=== PATIENT | male | born 1945 | race Caucasian/White ===

== ENCOUNTER → 2020-01-07 13:47 | Outpatient (BNVA) | payer MEDICARE, SELFPAY | PROVIDERS: PCP Family Medicine; Referring Provider Family Medicine; Visit Provider Internal Medicine | DX: I25.10 Atherosclerotic heart disease of native coronary artery without angina pectoris (principal); I10 Essential (primary) hypertension; E78.5 Hyperlipidemia, unspecified; E11.8 Type 2 diabetes mellitus with unspecified complications; F10.10 Alcohol abuse, uncomplicated; Z79.899 Other long term (current) drug therapy; Z79.84 Long term (current) use of oral hypoglycemic drugs | CPT/HCPCS: 99212 ==

== ENCOUNTER 2021-02-19 12:41 | Outpatient (REF) | payer MEDICARE, SELFPAY ==
--- NOTE | ~2021-02-19 | XR_ITS ---
EXAMINATION: XR ANKLE, RIGHT CLINICAL INFORMATION: Pain right foot and ankle COMPARISON: Report of May 01, 2012. No films available. TECHNIQUE: AP, lateral, and mortise views of the right ankle. FINDINGS: There is a nondisplaced spiral fracture about the distal right fibula. There is a small bony density about the distal aspect of the medial malleolus which may represent acute or chronic avulsion fracture fragment versus secondary ossification center.. There is soft tissue swelling seen about both medial and lateral aspects of the ankle. No medial joint space widening is seen. No talar tilt is appreciated. Prominent vascular calcifications are noted. Prominent calcaneal spurs are seen sites of insertion of Achilles and plantar tendons. XR/XR ankle RT 2V IMPRESSION: Nondisplaced spiral fracture distal fibula. Bony density tip of the medial malleolus which may represent acute or chronic avulsion fracture.
== END 2021-02-19 12:42 | disposition home or self-care (01) ==
LOC: HO.XRAY 12:41
PROVIDERS: PCP Family Medicine; Visit Provider Family Medicine
DX: M25.571 Pain in right ankle and joints of right foot (principal)
CPT/HCPCS: 73600

== ENCOUNTER 2021-02-19 13:44 | Emergency (ER) | payer MEDICARE, SELFPAY ==
[2021-02-19 13:56] VITALS: BP 141/74; PULSE 68; RESP 16; TEMP 36.7; O2SAT 98; BMI 36.0
== END 2021-02-19 17:09 | disposition left against medical advice (07) ==
PROVIDERS: Emergency Provider Emergency Medicine; PCP Family Medicine
DX: M79.661 Pain in right lower leg (principal)
CPT/HCPCS: 99281; 99282

== ENCOUNTER 2021-02-22 11:19 | Emergency (ER) | payer MEDICARE, SELFPAY ==
--- NOTE | 2021-02-22 12:04 | ED.LOWEXIN ---
HPI - Extremity Injury (Lower) General Stated Complaint: ankle pain - recalled Time Seen by Provider: 02/22/21 12:02 Source: patient Mode of arrival: ambulatory Limitations: no limitations History of Present Illness HPI Narrative: Patient fell 8 days ago in his house inverting his ankle. Patient has been walking on it since. 3 days ago on Monday patient hand an xray that was positive for fracture. MD complaint: ankle injury Onset (ago): week(s) Type of Injury: inversion Place: home Severity: moderate Exacerbating factors: weight bearing and movement Context: fall Associated symptoms: swelling Other symptoms: none Related Data Home Medications Medication Instructions Recorded Confirmed atorvastatin 80 mg tablet 80 mg PO DAILY 01/07/20 01/07/20 folic acid 1 mg tablet 1 mg PO DAILY 01/07/20 01/07/20 gabapentin 300 mg capsule 300 mg PO BID 01/07/20 01/07/20 insulin glargine 100 unit/mL (3 10 unit SUBCUT BEDTIME 01/07/20 01/07/20 mL) subcutaneous pen loratadine 10 mg tablet 10 mg PO DAILY 01/07/20 01/07/20 metformin 500 mg tablet,extended 1,000 mg PO BID 01/07/20 01/07/20 release 24 hr mirtazapine 15 mg tablet 15 mg PO BEDTIME 01/07/20 01/07/20 pioglitazone 15 mg tablet 15 mg PO DAILY 01/07/20 01/07/20 risperidone 1 mg tablet 1 mg PO BEDTIME 01/07/20 01/07/20 thiamine HCl (vitamin B1) 100 mg 100 mg PO DAILY 01/07/20 01/07/20 tablet Previous Rx's Medication Instructions Recorded metoprolol succinate 25 mg 25 mg PO DAILY 90 Days #90 tab 01/24/20 tablet,extended release 24 hr naproxen 500 mg tablet (Naprosyn) 500 mg PO BID #20 tab 02/22/21 Allergies Allergy/AdvReac Type Severity Reaction Status Date / Time Penicillins [PENICILLINS] Allergy Severe ANAPHYLAXIS Verified 01/07/20 09:35 Review of Systems Constitutional: Constitutional: Reports no additional constitutional complaints Eyes: Eyes: Reports no additional eye complaints ENT: Denies dizziness Cardiovascular: Cardiovascular: Reports no additional cardiovascular complaints Respiratory: Respiratory: Reports as per HPI Gastrointestinal: Gastrointestinal: Reports no additional gastrointestinal complaints Musculoskeletal: Musculoskeletal: Reports no additional musculoskeletal complaints Integumentary/Breasts: Skin/Breast: Denies rash Neurologic: Reports system reviewed and no additional complaints, except as documented, Denies dizziness and Denies Sensory deficit (Neuro) Psychiatric: Psychiatric: Denies anxiety PMF Past Medical History Medical History Atherosclerotic cardiovascular disease Essential hypertension Excessive drinking alcohol Other and unspecified hyperlipidemia Pulmonary embolism Type 2 diabetes mellitus with unspecified complications Surgical History History of appendectomy (~1973) History of cholecystectomy History of colonoscopy (~10/2012) History of esophagogastroduodenoscopy (EGD) (~04/2016) History of eye surgery History of left hip replacement (~2005) History of left knee replacement (~2010) History of right hip replacement (~2002) Family History Family History Father Stroke Cardiovascular disease Mother No problems noted. Social History Social History Advance Directives: No Advance Directives Information Provided: No Physical Exam Const: General: healthy appearing Nutritional Appearance: obese Orientation/consciousness: oriented to person and patient oriented x3 Limitations: no limitations HENMT: Head: Yes normal to inspection Ears: external ears normal General nose exam: Normal external nose present Mouth: Normal oral and palatal mucosa present and oropharynx normal Throat: Yes posterior oropharynx normal Eyes: General: appearance normal, both eyes and all related structures Neck: Other: supple Neck: Yes normal visual inspection Chest: Chest palpation & inspection: normal inspection of the chest Resp: Auscultation: clear to auscultation bilaterally Cardio: Jugular venous distension: no JVD Rate: regular rate Rhythm: regular rhythm Heart sounds: S1 normal heart sound present and S2 normal heart sound present GI: Inspection: Yes normal to inspection Palpation (GI): Soft to palpation, nontender and No hepatosplenomegaly present Auscultation: normal bowel sounds : General: Yes no CVA tenderness Back/Spine/Pelvis: Back: no CVA tenderness Skin: General skin exam: no rashes or lesions noted Neuro: General: oriented to person and patient oriented x3 Cranial nerves: Yes CN's II-XII intact bilaterally Motor exam (neuro): 5/5 motor strength present throughout Sensory Exam: No Sensory deficit (Neuro) Extrem: Other: right ankle with edema, decreased ROM, tenderness to lateral malleolous, good DP pulses. Psych: Appearance: grossly normal Course Reevaluation(s) Reevaluation #1: Discussed with Dr. Greene will place patient in a walking boot and dc home Time: 12:50 Discharge Plan Discharge Clinical Impression: Fracture of distal end of fibula Qualifiers: Encounter type: initial encounter Fracture type: closed Fracture morphology: other fracture Laterality: right Qualified Code(s): S82.831A - Other fracture of upper and lower end of right fibula, initial encounter for closed fracture Patient Disposition: Home, Self-Care Instructions: Leg Fracture (ED) Prescriptions: New naproxen [Naprosyn] 500 mg tablet 500 mg PO BID Qty: 20 RF: 0 No Action metoprolol succinate 25 mg tablet extended release 24 hr 25 mg PO DAILY 90 Days Qty: 90 RF: 1 folic acid 1 mg tablet 1 mg PO DAILY RF: 0 loratadine 10 mg tablet 10 mg PO DAILY RF: 0 gabapentin 300 mg capsule 300 mg PO BID RF: 0 atorvastatin 80 mg tablet 80 mg PO DAILY RF: 0 Lantus Solostar U-100 Insulin 100 unit/mL (3 mL) insulin pen 10 unit subcut BEDTIME RF: 0 metformin 500 mg tablet extended release 24 hr 1,000 mg PO BID RF: 0 pioglitazone 15 mg tablet 15 mg PO DAILY RF: 0 thiamine HCl (vitamin B1) 100 mg tablet 100 mg PO DAILY RF: 0 mirtazapine 15 mg tablet 15 mg PO BEDTIME RF: 0 risperidone 1 mg tablet 1 mg PO BEDTIME RF: 0 Referrals: Azael Greene MD [Physician] - 10 days
[2021-02-22 12:51] VITALS: BP 180/98; PULSE 57; RESP 16; TEMP 36.8; O2SAT 98; BMI 34.4
== END 2021-02-22 15:18 | disposition home or self-care (01) ==
PROVIDERS: Emergency Provider Emergency Medicine; PCP Family Medicine
DX: S82.831A Other fracture of upper and lower end of right fibula, initial encounter for closed fracture (principal); I10 Essential (primary) hypertension; I25.10 Atherosclerotic heart disease of native coronary artery without angina pectoris; E11.9 Type 2 diabetes mellitus without complications; Z86.711 Personal history of pulmonary embolism; X50.1XXA Overexertion from prolonged static or awkward postures, initial encounter; Y93.9 Activity, unspecified; Y92.009 Unspecified place in unspecified non-institutional (private) residence as the place of occurrence of the external cause; Y99.9 Unspecified external cause status
CPT/HCPCS: 99283

== ENCOUNTER 2021-04-05 07:54 | Outpatient (REF) | payer MEDICARE, SELFPAY ==
--- NOTE | ~2021-04-05 | XR_ITS ---
EXAMINATION: XR ANKLE, RIGHT CLINICAL INFORMATION: Pain in right ankle and joint of the right foot COMPARISON: Right ankle 02/19/2021 TECHNIQUE: AP, lateral, and mortise views of the right ankle. FINDINGS: There is an oblique fracture distal fibula with moderate lateral fibular soft tissue swelling. The ankle mortise and subtalar joints are normal. There is a moderate size retrocalcaneal and calculi heel spur. No visible acute fracture or dislocation seen. XR/XR ankle RT min 3V IMPRESSION: Oblique distal fibular fracture with mild displacement. There is no callus formation seen yet. There is moderate lateral malleolar soft tissue swelling.
== END 2021-04-05 07:55 | disposition home or self-care (01) ==
LOC: HO.HOSX 07:54
PROVIDERS: Visit Provider Physician Assistant
DX: M25.571 Pain in right ankle and joints of right foot (principal); S82.831A Other fracture of upper and lower end of right fibula, initial encounter for closed fracture; W01.0XXA Fall on same level from slipping, tripping and stumbling without subsequent striking against object, initial encounter; Y93.9 Activity, unspecified; Y92.9 Unspecified place or not applicable; Y99.8 Other external cause status; I10 Essential (primary) hypertension; E78.5 Hyperlipidemia, unspecified; R78.0 Finding of alcohol in blood; Z90.49 Acquired absence of other specified parts of digestive tract; Z88.0 Allergy status to penicillin
CPT/HCPCS: 73610; 99202

== ENCOUNTER 2021-05-05 11:12 | Outpatient (REF) | payer MEDICARE, SELFPAY | END 2021-05-05 11:13 | disposition home or self-care (01) | LOC: HO.HOSX 11:12 | PROVIDERS: Visit Provider Physician Assistant | DX: Z13.89 Encounter for screening for other disorder (principal) ==

== ENCOUNTER 2021-05-06 13:42 | Outpatient (REF) | payer MEDICARE, SELFPAY ==
--- NOTE | ~2021-05-06 | XR_ITS ---
EXAMINATION: XR ANKLE, RIGHT CLINICAL INFORMATION: Fracture COMPARISON: Previous x-ray March 2021 TECHNIQUE: AP, lateral, and mortise views of the right ankle. FINDINGS: There is a minimally displaced fracture of the distal fibular shaft. Fracture line appears more indistinct with the bony callus formation suggestive of evidence of healing. No other fracture is seen. The ankle mortise is normal. There are calcaneal spurs. There is soft tissue arterial calcification. XR/XR ankle RT min 3V IMPRESSION: Healing right distal fibular shaft fracture.
== END 2021-05-06 13:43 | disposition home or self-care (01) ==
LOC: HO.XRAY 13:42
PROVIDERS: Absent Provider Family Medicine; PCP Family Medicine; Visit Provider Physician Assistant
DX: M25.571 Pain in right ankle and joints of right foot (principal)
CPT/HCPCS: 73610

== ENCOUNTER 2022-09-19 15:23 | Emergency (ER) | payer MEDICARE, SELFPAY ==
--- NOTE | ~2022-09-19 | CT_ITS ---
EXAMINATION: CT ABDOMEN AND PELVIS WITH CONTRAST CLINICAL INFORMATION: Upper abdominal pain COMPARISON: Ultrasound abdomen 01/11/2019, CT abdomen pelvis 04/24/2018 along with CTs dating back to 06/05/2013 TECHNIQUE: Multidetector volumetric images were obtained from the superior aspect of the liver through the pubic symphysis following administration 85 mL of Omnipaque 350 intravenous contrast. Sagittal and coronal reformatted images were obtained on the technologist's workstation. Oral contrast: No This CT examination was performed using dose optimization techniques as appropriate, variously including the following: *Automated exposure control *Adjustment of mA and/or kV according to patient size (this includes techniques or standardized protocols for targeted exams where dose is matched to indication/reason for exam; i.e. extremities or head) *Use of iterative reconstruction technique DLP: 664 mGy-cm FINDINGS: LUNG BASES: Bibasilar atelectasis is present. Heart size normal. LIVER, GALLBLADDER, AND BILIARY TREE: The liver has a nodular border and decreased attenuation suggesting cirrhosis. No focal hepatic lesion or bile duct dilatation is seen. A small recanalized umbilical vein is present. No ascites is present. Status post cholecystectomy. PANCREAS: Unremarkable. SPLEEN: Unremarkable. ADRENAL GLANDS: Unremarkable. KIDNEYS AND URETERS: The kidneys are normal in size, shape, and attenuation. No hydronephrosis, hydroureter, or calculi seen. No perinephric stranding. BLADDER: Unremarkable. GASTROINTESTINAL TRACT: The small and large bowel are unremarkable. The appendix is not seen but there is no evidence of appendicitis.. ABDOMINAL WALL: No significant hernia is appreciated. LYMPH NODES: No retroperitoneal lymphadenopathy. There is marked fatty atrophy of the iliopsoas muscles. VASCULAR: Calcific atherosclerotic changes in the aorta and iliofemoral vessels without gross aneurysm. The common iliac arteries are ectatic measuring about 1.3 cm in diameter. PELVIC VISCERA: Difficult to evaluate because of bilateral hip prostheses. OSSEOUS STRUCTURES: Bilateral hip prostheses are present. Degenerative changes are seen throughout the spine most marked at L4-L5 and L5-S1. No bony destructive lesions are seen. CT/CT abdomen pelvis w IV con IMPRESSION: 1. A cause for the patient's upper abdominal pain has not been found. 2. Incidental note made of mild nodular low attenuation liver with recanalized umbilical vein raising the question of cirrhosis, cholecystectomy, fatty atrophy of the iliopsoas muscles and degenerative changes in the spine. Fleischner guidelines were followed.
[2022-09-19 15:53] VITALS: BP 140/90; PULSE 86; O2SAT 99
[2022-09-19 16:05] VITALS: BP 130/69; PULSE 87; RESP 18; TEMP 37.3; O2SAT 100; BMI 28.4
--- NOTE | 2022-09-19 16:19 | ECG_ITS ---
Test Reason : CP RESOLVED. ABD PAIN Blood Pressure : / mmHG Vent. Rate : 088 BPM Atrial Rate : 088 BPM P-R Int : 178 ms QRS Dur : 074 ms QT Int : 382 ms P-R-T Axes : 039 -14 064 degrees QTc Int : 462 ms Normal sinus rhythm Inferior infarct , age undetermined Abnormal ECG When compared with ECG of 30-SEP-2018 14:55, No significant change was found Referred By: Generic ED Physician Electronically Signed By:JORGE ANNE MD
--- NOTE | 2022-09-19 16:42 | ED_ITS ---
HPI - Abdominal Pain General Chief Complaint: Abdominal Pain Stated Complaint: DIZZY NAUSEA CHEST PAIN Time Seen by Provider: 09/19/22 16:38 Source: patient Mode of arrival: ambulatory Limitations: no limitations History of Present Illness HPI narrative: 77-year-old male past medical history of back pain alcohol abuse fatty liver diverticulitis history hyperlipidemia type 2 diabetes and hypertension presents to emergency room complaining of nausea vomiting and abdominal pain. His states that he had surgery 1 month ago on his teeth and has had some trouble with eating this was follow-up with a dentist today when he had the vomiting and abdominal pain that came in here for evaluation. MD elicited complaint: abdominal pain Pain Consistency: constant Related Data Home Medications Medication Instructions Recorded Confirmed atorvastatin 80 mg tablet 80 mg PO DAILY 01/07/20 01/07/20 folic acid 1 mg tablet 1 mg PO DAILY 01/07/20 01/07/20 gabapentin 300 mg capsule 300 mg PO BID 01/07/20 01/07/20 insulin glargine 100 unit/mL (3 10 unit subcut BEDTIME 01/07/20 01/07/20 mL) subcutaneous pen loratadine 10 mg tablet 10 mg PO DAILY 01/07/20 01/07/20 metformin 500 mg tablet,extended 1,000 mg PO BID 01/07/20 01/07/20 release 24 hr mirtazapine 15 mg tablet 15 mg PO BEDTIME 01/07/20 01/07/20 pioglitazone 15 mg tablet 15 mg PO DAILY 01/07/20 01/07/20 risperidone 1 mg tablet 1 mg PO BEDTIME 01/07/20 01/07/20 thiamine HCl (vitamin B1) 100 mg 100 mg PO DAILY 01/07/20 01/07/20 tablet Previous Rx's Medication Instructions Recorded metoprolol succinate 25 mg 25 mg PO DAILY 90 days #90 tabs 01/24/20 tablet,extended release 24 hr naproxen 500 mg tablet (Naprosyn) 500 mg PO BID #20 tabs 02/22/21 ondansetron 4 mg disintegrating 4 mg PO Q6H #14 tabs 09/19/22 tablet Allergies Allergy/AdvReac Type Severity Reaction Status Date / Time Penicillins [PENICILLINS] Allergy Severe ANAPHYLAXIS Verified 04/05/21 10:56 Review of Systems Review of Systems Review of systems: General: Patient denies any fever chills recent illness or falls Musculoskeletal: Denies back pain or body aches or other injuries HEENT: denies headache, runny nose, ear pain Respiratory: denies shortness of breath, cough Cardiovascular: no chest pain or palpitations : denies dysuria, frequency Abdomen: Diarrhea nausea vomiting epigastric abdominal pain Extremities: no swelling, no pain Skin: no diaphoresis Yes all other systems are reviewed and are negative PMFSH Past Medical History Medical History Atherosclerotic cardiovascular disease Essential hypertension Excessive drinking alcohol Other and unspecified hyperlipidemia Pulmonary embolism Type 2 diabetes mellitus with unspecified complications Surgical History History of appendectomy (~1973) History of cholecystectomy History of colonoscopy (~10/2012) History of esophagogastroduodenoscopy (EGD) (~04/2016) History of eye surgery History of left hip replacement (~2005) History of left knee replacement (~2010) History of right hip replacement (~2002) Family History Family History Father Stroke Cardiovascular disease Mother No problems noted. Social History Social History (Updated 04/05/21 @ 10:55 by Demarco Chance) Alcohol intake: current Alcohol intake frequency: holidays/special occasions only Alcohol type: beer Smoked in Last 30 Days: No Use of substances other than those prescribed or required for medical reasons: No Advance Directives: No Advance Directives Information Provided: Yes Current occupational status: retired Current occupation: [employer] Physical Exam ED Vital Signs: Vital Signs - 24 hr 09/19/22 16:05 Temperature 99.2 F Pulse Rate 87 Respiratory Rate 18 Blood Pressure 130/69 Pulse Oximetry 100 Oxygen Delivery Method Room Air BMI result Body Mass Index 28.4 General: Well-appearing well-nourished in no signs of distress HEENT: Normocephalic atraumatic Neck: No signs of JVD, no masses no tenderness or lymphadenopathy Cardiovascular: Regular rate and rhythm Respiratory: Clear to auscultation bilaterally Abdomen: Soft nontender no masses initially was in significant pain to the upper abdomen with guarding but then that resolved shortly after and had no pain while patient has belly. Extremities: Normal pedal pulses no signs of edema Skin: Dry warm no rashes Back: No tenderness full ROM Course Reevaluation(s) Reevaluation #1: I explained the CT results symptoms have resolved. I will send home with zofran and PCP follow up. Time: 18:57 Medical Decision Making Medical Decision Making [facility] Narrative: Concern for nausea vomiting diarrhea and epigastric pains could be a simple gastritis or alcohol liver disease I will check labs patient has a negative Serrato sign I do not think this is acute cholecystitis. I will get a CT read I will give fluids and reassess. Differential Diagnosis Differential Diagnoses: The differential diagnosis associated with the presentation includes Gastritis cholecystitis alcohol liver disease hepatitis I will check labs patient was tender initially so I will give the patient for CT scan. Admission/Observation Consideration of admission/observation: Escalation of care including admission/observation considered Lab Data [facility] Lab Attestation statement: I reviewed the patient's lab results. 09/19/22 16:20 09/19/22 16:20 Labs: Lab Results 09/19/22 09/19/22 09/19/22 Range/Units 16:20 16:20 16:20 WBC 7.3 (4.8-10.8) X10*3/uL RBC 3.69 L (4.60-5.80) X10*6/uL Hgb 12.2 L (14.0-18.0) g/dl Hct 34.9 L (42.0-52.0) % MCV 94.6 (80.0-98.0) fL MCH 33.1 H (27.0-33.0) pg MCHC 35.0 (31.0-36.0) g/dl RDW 14.2 (11.0-16.0) % Plt Count 218 (160-400) X10*3/uL MPV 9.4 (9.4-12.4) fL Immature Gran % (Auto) 0.3 (0.0-0.4) % Neut % (Auto) 67.7 (45-73) % Lymph % (Auto) 23.8 (20-40) % Franklin % (Auto) 6.9 (2-11) % Eos % (Auto) 0.7 (0-4) % Baso % (Auto) 0.6 (0-2) % Lymph # (Auto) 1.7 (1.2-4.9) X10*3/uL Franklin # (Auto) 0.5 (0.1-1.2) X10*3/uL Eos # (Auto) 0.1 (0.0-0.4) X10*3/uL Baso # (Auto) 0.0 (0.0-0.2) X10*3/uL Abs Immat Gran (auto) 0.02 (0.00-0.03) X10*3/uL Absolute Neuts (auto) 4.9 (2.0-8.3) x10*3/uL Absolute Nucleated RBC 0.000 (0.0-0.012) X10*3/uL Nucleated RBC % (auto) 0.0 (0.0-0.2) /100WBC Sodium 134 L (135-145) mmol/L Potassium 3.6 (3.3-5.1) mmol/L Chloride 96 (96-108) mmol/L Carbon Dioxide 17 L (22-29) mmol/L Anion Gap 25 H (12-20) BUN 3 L (9-16) mg/dL Creatinine 0.91 (0.5-1.4) mg/dL Estim Creat Clear Calc 70.8 Estimated GFR > 60 Random Glucose 149 H (60-115) mg/dL Calcium 9.5 (8.4-10.2) mg/dL Total Bilirubin 0.7 (0.0-1.0) mg/dL Direct Bilirubin 0.3 (0.0-0.5) mg/dL AST 81 H (5-37) U/L ALT 34 (0-40) U/L Alkaline Phosphatase 237 H (39-117) U/L Troponin I High Sens 3.9 (<3.5-35.0) ng/L Total Protein 7.3 (6.5-8.0) g/dL Albumin 3.6 (3.5-5.0) g/dL Lipase 24 (8-78) U/L Ethyl Alcohol < 10 mg/dL Independent Interpretation I performed an independent interpretation of an: CT Scan Independent Historian Clinical information obtained from an independent historian. History obtained from or confirmed by: Spouse His is at the bedside External Record Review External record reviewed: Inpatient record Chronic Conditions Patient?s care impacted by: Diabetes and Hypertension Social Determinants Patient?s care significantly limited by Social Determinants of Health including: Inadequate housing and Alcoholism and drug addiction in family Core Measures AMI core measures followed: Yes Medications Administered Discontinued Medications Generic Name Dose Route Start Last Admin Trade Name Dagoberto PRN Reason Stop Dose Admin Iohexol 100 ml 09/19/22 17:21 09/19/22 17:22 Iohexol 350 Mg/Ml 100 Ml Infus..Btl IV 09/19/22 17:22 85 ml ONCE ONE Administration Ondansetron HCl 4 mg 09/19/22 16:10 09/19/22 16:43 Ondansetron Hcl 4 Mg/2 Ml Vial IVPUSH 09/19/22 16:11 4 mg ONCE ONE Administration Discharge Plan Discharge Clinical Impression: Abdominal pain, Vomiting Patient Disposition: Home, Self-Care Instructions: Acute Nausea and Vomiting (ED), Abdominal Pain (ED) Additional Instructions: You seen today for abdominal pain and vomiting. You had a complete workup including labs and CT scan which were all negative. Give any further pain recurrent vomiting that is not controlled with the Zofran please return to the emergency department. If you have any other concerns please return to the emergency department. Prescriptions: New ondansetron 4 mg tablet,disintegrating 4 mg PO Q6H Qty: 14 0RF No Action metoprolol succinate 25 mg tablet extended release 24 hr 25 mg PO DAILY 90 Days Qty: 90 1RF naproxen [Naprosyn] 500 mg tablet 500 mg PO BID Qty: 20 0RF folic acid 1 mg tablet 1 mg PO DAILY loratadine 10 mg tablet 10 mg PO DAILY gabapentin 300 mg capsule 300 mg PO BID atorvastatin 80 mg tablet 80 mg PO DAILY Marichuy Guerra U-100 Insulin 100 unit/mL (3 mL) insulin pen 10 unit subcut BEDTIME metformin 500 mg tablet extended release 24 hr 1,000 mg PO BID pioglitazone 15 mg tablet 15 mg PO DAILY thiamine HCl (vitamin B1) 100 mg tablet 100 mg PO DAILY mirtazapine 15 mg tablet 15 mg PO BEDTIME risperidone 1 mg tablet 1 mg PO BEDTIME
[2022-09-19 17:03] LABS: Alanine Aminotransferase 34 U/L (0-40); Albumin Level 3.6 g/dL (3.5-5.0); Alkaline Phosphatase 237 U/L (39-117); Anion Gap 25 (12-20); Aspartate Amino Transferase 81 U/L (5-37); Bilirubin Direct 0.3 mg/dL (0.0-0.5); Bilirubin Total 0.7 mg/dL (0.0-1.0); Blood Urea Nitrogen 3 mg/dL (9-16); Calcium 9.5 mg/dL (8.4-10.2); Carbon Dioxide 17 mmol/L (22-29); Chloride 96 mmol/L (96-108); Creatinine Clr Calc Pharmacy 70.8; Estimated Glomerular Filt Rate > 60; Ethanol < 10 mg/dL; Glucose Random 149 mg/dL (60-115); Lipase 24 U/L (8-78); Potassium 3.6 mmol/L (3.3-5.1); Sodium 134 mmol/L (135-145); Total Protein 7.3 g/dL (6.5-8.0)
[2022-09-19] MEDS: iohexoL 350 MG/ML 100 ML INFUS..BTL IV (17:22)
--- NOTE | 2022-09-19 17:31 | PC.NURSE ---
put pt on purwick, pt is complaining of being severely cold, warm blanket was given.
--- NOTE | 2022-09-19 19:12 | PC.NURSE ---
Pt a&o, no sob or chest pain, reviewed discharge instructions with pt, pt verbalized understanding. No sign of distress, notified ELDA Bocanegra.
== END 2022-09-19 19:15 | disposition home or self-care (01) ==
PROVIDERS: Emergency Provider Student in an Organized Health Care Education/Training Program
DX: R42 Dizziness and giddiness (principal); M54.50 Low back pain, unspecified; R07.89 Other chest pain; R11.2 Nausea with vomiting, unspecified; R10.10 Upper abdominal pain, unspecified; Z79.899 Other long term (current) drug therapy
CPT/HCPCS: 36415; 74177; 80048; 80076; 80307; 83690; 84484; 85025; 93005; 96374; 99284; J2405; Q9967

== ENCOUNTER → 2022-09-19 16:19 | Outpatient (BNV) | payer MEDICARE, SELFPAY | PROVIDERS: Emergency Provider Student in an Organized Health Care Education/Training Program; Visit Provider Internal Medicine Cardiovascular Disease | DX: R94.31 Abnormal electrocardiogram [ECG] [EKG] (principal) | CPT/HCPCS: 93010 ==

== ENCOUNTER 2023-05-30 13:02 | Outpatient (REF) | payer MEDICARE, SELFPAY ==
--- NOTE | ~2023-05-30 | XR_ITS ---
EXAMINATION: XR CERVICAL SPINE AND LUMBAR SPINE CLINICAL INFORMATION: Worsening low back pain without sciatica. Patient states years of low back pain. Cervical spine worsening neck pain. Patient states 2 weeks of pain. Technologist states difficult positioning. Best possible attempts. COMPARISON: Lumbar spine radiographs 12/05/2012. CT cervical spine 2019. TECHNIQUE: 5 views of the cervical spine. 4 views of the lumbar spine. FINDINGS: Lumbar Spine: Surgical clips right upper quadrant. Bilateral total hip prostheses minimally imaged. Advanced degenerative changes in the imaged lower thoracic spine. Atherosclerotic aortic calcifications. Moderate compression deformity of lower thoracic vertebral bodies present on CT scan of 09/19/2022. Advanced multilevel degenerative changes in the lumbar spine with multilevel loss of disc space height most severe at L4-L5 and L5-S1. Facet arthritis in the [id number] lumbar spine. Cervical Spine: C7 vertebral body obscured by overlying soft tissues. Multilevel cervical spondylosis with prominent anterior osteophytes and loss of disc space height, most notable at C6-C7. XR/XR cervical spine 3V IMPRESSION: 1. Advanced multilevel degenerative changes in the lumbar spine, most notable at L4-L5 and L5-S1. 2. Multilevel cervical spondylosis, most notable at C6-C7.
--- NOTE | ~2023-05-30 | XR_ITS ---
EXAMINATION: XR CERVICAL SPINE AND LUMBAR SPINE CLINICAL INFORMATION: Worsening low back pain without sciatica. Patient states years of low back pain. Cervical spine worsening neck pain. Patient states 2 weeks of pain. Technologist states difficult positioning. Best possible attempts. COMPARISON: Lumbar spine radiographs 12/05/2012. CT cervical spine 2019. TECHNIQUE: 5 views of the cervical spine. 4 views of the lumbar spine. FINDINGS: Lumbar Spine: Surgical clips right upper quadrant. Bilateral total hip prostheses minimally imaged. Advanced degenerative changes in the imaged lower thoracic spine. Atherosclerotic aortic calcifications. Moderate compression deformity of lower thoracic vertebral bodies present on CT scan of 09/19/2022. Advanced multilevel degenerative changes in the lumbar spine with multilevel loss of disc space height most severe at L4-L5 and L5-S1. Facet arthritis in the [id number] lumbar spine. Cervical Spine: C7 vertebral body obscured by overlying soft tissues. Multilevel cervical spondylosis with prominent anterior osteophytes and loss of disc space height, most notable at C6-C7. XR/XR lumbar spine 2-3V IMPRESSION: 1. Advanced multilevel degenerative changes in the lumbar spine, most notable at L4-L5 and L5-S1. 2. Multilevel cervical spondylosis, most notable at C6-C7.
[2023-05-30 16:21] LABS: Hematocrit 34.5 % (42.0-52.0); Hemoglobin 11.9 g/dl (14.0-18.0); Mean Corpuscular HGB Conc 34.5 g/dl (31.0-36.0); Mean Corpuscular Volume 95.6 fL (80.0-98.0); Platelet Count 181 X10*3/uL (160-400); Red Blood Count 3.61 X10*6/uL (4.60-5.80); Red Cell Distribution Width 13.6 % (11.0-16.0); White Blood Count 7.2 X10*3/uL (4.8-10.8)
[2023-05-30 16:44] LABS: Estimated Average Glucose 223 mg/dL; Hemoglobin A1c % 9.4 % (<6.0)
[2023-05-30 16:52] LABS: Creatinine Urine 30.05 mg/dL; Microalbum/Creatinine Ratio Ur 16.6 ug/mg cr (<30)
[2023-05-30 16:53] LABS: Alanine Aminotransferase 34 U/L (0-40); Albumin Level 3.9 g/dL (3.5-5.0); Alkaline Phosphatase 323 U/L (39-117); Anion Gap 15 (12-20); Aspartate Amino Transferase 73 U/L (5-37); Bilirubin Direct 0.4 mg/dL (0.0-0.5); Bilirubin Total 0.7 mg/dL (0.0-1.0); Blood Urea Nitrogen 6 mg/dL (9-16); Calcium 9.9 mg/dL (8.4-10.2); Carbon Dioxide 22 mmol/L (22-29); Chloride 100 mmol/L (96-108); Cholesterol 182 mg/dL (<200); Estimated Glomerular Filt Rate > 60; Glucose Random 340 mg/dL (60-115); HDL Cholesterol 95 mg/dL (>40); LDL Cholesterol Calculated 69 mg/dL (<100); Potassium 4.7 mmol/L (3.3-5.1); Sodium 132 mmol/L (135-145); Total Protein 7.7 g/dL (6.5-8.0); Triglycerides 94 mg/dL (<150)
[2023-05-30 16:54] LABS: Free T4 (Free Thyroxine) 0.86 ng/dL (0.71-1.85); Thyroid Stimulating Hormone 0.98 uIU/mL (0.32-4.0); Vitamin D 25-OH Total 25.9 ng/mL (>30)
[2023-05-31 07:45] LABS: HBS Num1 104.01 mIU/mL (0-7.99); HBsAGNum1 0.53 S/CO (0.00-0.99); HIV AB/AG Nonreactive (Nonreactive); Hepatitis B Surface Antigen Negative (Negative); ~HepC Num1 0.32 S/CO (0.00-0.79); ~Hepatitis B Surface Antibody REACTIVE (Nonreactive); ~Hepatitis C Antibody Nonreactive (Nonreactive)
[2023-06-01 08:08] LABS: RPR Rapid Plasma Reagin NON-REACTIVE (NON-REACTIVE)
== END 2023-05-30 13:03 | disposition home or self-care (01) ==
LOC: HO.HHCL 13:02
PROVIDERS: Visit Provider Family Medicine
DX: M54.2 Cervicalgia (principal); M54.50 Low back pain, unspecified; K76.0 Fatty (change of) liver, not elsewhere classified; E11.9 Type 2 diabetes mellitus without complications; G89.29 Other chronic pain; Z00.00 Encounter for general adult medical examination without abnormal findings
CPT/HCPCS: 36415; 72040; 72100; 80048; 80061; 80076; 82043; 82105; 82306; 82570; 83036; 84439; 84443; 85027; 86592; 86706; 86803; 87340; 87389

== ENCOUNTER 2023-06-20 11:22 | Outpatient (REF) | payer OTHER, SELFPAY ==
--- NOTE | ~2023-06-20 | XR_ITS ---
EXAMINATION: XR PRE-MRI SCREENING (ORBITS) CLINICAL INFORMATION: Evaluate for foreign bodies in orbits. MRI screening. COMPARISON: None TECHNIQUE: Radiographs of orbits, 3 views FINDINGS: There are no radiopaque foreign bodies in either orbit. Paranasal sinuses are well aerated and without air-fluid levels. The visualized calvarium and facial bones are unremarkable. XR/XR pre mri screening IMPRESSION: No evidence of metallic foreign body in either orbit.
== END 2023-06-20 11:23 | disposition home or self-care (01) ==
LOC: HO.XRAY 11:22
PROVIDERS: Absent Provider Family Medicine; PCP Family Medicine; Visit Provider Internal Medicine
DX: Z13.89 Encounter for screening for other disorder (principal)

== ENCOUNTER → 2023-06-21 11:13 | Outpatient (BNV) | payer OTHER, SELFPAY | PROVIDERS: PCP Family Medicine; Visit Provider Internal Medicine Cardiovascular Disease | DX: I35.1 Nonrheumatic aortic (valve) insufficiency (principal) | CPT/HCPCS: 93306 ==

== ENCOUNTER → 2023-06-21 11:27 | Outpatient (REF) | payer OTHER, SELFPAY ==
--- NOTE | 2023-06-21 11:13 | CA_ITS ---
Transthoracic Echocardiogram Patient (Last, First, Middle): Jaylan Fleming F Gender: Male Date of : 1945 Age: 78 Procedure Date: 06/21/2023 Procedure Type: Transthoracic Echocardiogram Location: OP Height: 170.18 cm Weight: 80.74 kg BSA: 1.92 m2 Heart Rate: bpm BP: 132 / 80 mmHg Engineer Specialist: SIVAKUMAR Salinas MD: Kamilah Leavitt DO Senior Program Manager: Allan Rocha MD Symptoms: BALANCE PROBLEM R26.89 Study Quality: Fair ECG Rhythm: Sinus Conclusions: - 1. Normal LV ejection fraction of 55-60% with impaired relaxation filling pattern 2. Mild aortic regurgitation 3. Mildly dilated ascending aorta at 3.9 cm 4. Normal RV systolic pressure 5. No pericardial effusion Findings Left Ventricle Normal left ventricular size, thickness, and systolic function. The visually estimated ejection fraction is between 55-60%. Spectral Doppler is indicative of an impaired relaxation filling pattern. E/E prime ratio is between 8 and 15 consistent with indeterminate filling pressures. Right Ventricle Normal right ventricular cavity size and systolic function. Atria Both atria are normal in size. There is no evidence of interatrial shunt. Aortic Valve There is mild calcification of the aortic valve. There is no aortic valve stenosis. There is mild aortic valve regurgitation. Mitral Valve There is mild anterior and posterior mitral leaflet thickening. There is trace mitral valve regurgitation. There is no mitral valve stenosis. Pulmonic Valve The pulmonic valve is likely normal. There is trace pulmonic valve regurgitation. Tricuspid Valve Normal tricuspid valve structure. There is mild tricuspid valve regurgitation. The right ventricular systolic pressure is normal. The right ventricular systolic pressure is 26 mmHg. Normal right atrial pressure. There is no evidence of pulmonary hypertension. Great Vessels The pulmonary artery was not well visualized. There is mild dilatation of the ascending aorta measuring 3.90 cm. Small plaque is seen in the sino tubular ridge. Venous The inferior vena cava is normal in size and collapses greater than 50% with inspiration. Pericardium/Pleural There is no evidence of pericardial effusion. Prior Study Comparison Changes noted compared to prior study dated: 10/01/2018. Mildly dilated ascending aorta and mild aortic regurgitation noted Measurements 2D Linear Measurements IVSd: 1.05 0.6-0.9/0.6-1.0 cm LVIDd: 4.61 3.9-5.3/4.2-5.9 cm LVIDd Index: 2.40 2.4-3.2/2.2-3.1 cm/m2 LVIDs: 2.71 2.0-3.6 cm LVPWd: 1.07 0.7-1.1 cm Ao Root: 3.70 2.1-3.5 cm LA Diam: 3.00 2.7-3.8/3.0-4.0 cm LAIDs Index: 1.56 1.5-2.3 cm/m2 LV Mass: 215.12 67-162/88-224 g LV Mass Index: 112.04 43-95/49-115 g/m2 LVOT Diam: 2.10 3.0+(-)1.3 cm 2D Systolic Function EF 4C: 58.90 >55% EF 2C: 59.20 >55% EF BiP: 59.40 >55% Mitral Valve MV Pk E: 0.76 MV PK A: 0.90 MV Decel Time: 209.00 E/A: 0.80 E'Lateral: 7.07 E'Medial: 7.40 E/E' Med: 10.30 E/E' Lat: 10.80 PHT: 61.00 MVA PHT: 3.61 Decel [place]: 3.66 Aortic Valve AoV Pk Bill: 1.42 AoV Mn Bill: 0.85 AoV VTI: 0.29 AoV Pk Grad: 8.00 Aov Mn Grad: 4.00 LAUREL Cont.VTI: 2.57 AI Pk Bill: 3.73 AI [place]: 1.60 LVOT LVOT Pk Bill: 0.97 LVOT Mn Bill: 0.57 LVOT VTI: 0.21 LVOT Pk Grad: 4.00 LVOT Mn Grad: 2.00 LVOT Diam: 2.10 LVOT Area: 3.46 Diastolic Function MV Pk E: 0.76 MV Pk A: 0.90 E/A: 0.80 E'Medial: 7.40 E/E' Med: 10.30 E' Laterial: 7.07 E/E' Lat: 10.80 Right Ventricle TAPSE (mm): 17.80 TVS' Bill: 14.10 Tricuspid Valve TR Pk Bill: 2.40 TR Pk Grad: 23.00 RA Press: 3.00 RVSP: 26.00 Great Vessels Aorta Ao Root-2D: 3.70 2.0-3.7 cm Ao Asc: 3.90 2.1-3.4 cm Ao Arch: 3.20 Updated in Other Vendor System with Status of Final Allan Rocha MD electronically signed on 06/21/2023 3:48:07 PM with status of Final
== END ==
LOC: HO.CARD 11:27
PROVIDERS: PCP Family Medicine; Visit Provider Family Medicine
DX: R26.89 Other abnormalities of gait and mobility (principal)
CPT/HCPCS: 93306; Q9957

== ENCOUNTER 2023-07-28 09:32 | Outpatient (REF) | payer OTHER, SELFPAY ==
--- NOTE | ~2023-07-28 | MR_ITS ---
MRI OF THE BRAIN WITHOUT IV CONTRAST INDICATION: Worsening balance sensation. COMPARISON: None available. TECHNIQUE: Multiplanar multisequence MR imaging of the brain was obtained without IV contrast. FINDINGS: There is no hydrocephalus, extra-axial surface collection, or herniation. There is global cerebral volume loss and there is mild chronic microangiopathy. Chronic lacunar infarct within the right peritrigonal white matter. The major flow voids at the skull base are preserved. There is no acute infarct on diffusion-weighted imaging. There is no intracranial hemorrhage on the gradient recalled echo acquisition. The midline structures are normal. The cerebellar tonsils are normally positioned. The cerebellum and brainstem are normal. The craniocervical junction is normal. Osseous marrow signal intensity is homogenous. The visualized soft tissues are unremarkable. There is a retention cyst within the right frontal sinus. MR/MR head/brain wo con IMPRESSION: - No acute intracranial findings. No acute infarcts. - There is global cerebral volume loss and there is mild chronic microangiopathy. Chronic lacunar infarct within the right peritrigonal white matter
== END 2023-07-28 09:33 | disposition home or self-care (01) ==
LOC: HO.MRI 09:32
PROVIDERS: PCP Family Medicine; Visit Provider Family Medicine
DX: R26.89 Other abnormalities of gait and mobility (principal)
CPT/HCPCS: 70551

== ENCOUNTER 2024-03-01 10:27 | Outpatient (REF) | payer OTHER, SELFPAY ==
[2024-03-01 11:48] LABS: Hematocrit 35.1 % (42.0-52.0); Mean Corpuscular HGB Conc 34.2 g/dl (31.0-36.0); Mean Corpuscular Hemoglobin 31.7 pg (27.0-33.0); Mean Corpuscular Volume 92.9 fL (80.0-98.0); Mean Platelet Volume 9.5 fL (9.4-12.4); Platelet Count 212 X10*3/uL (160-400); Red Blood Count 3.78 X10*6/uL (4.60-5.80); Red Cell Distribution Width 13.8 % (11.0-16.0); White Blood Count 7.9 X10*3/uL (4.8-10.8)
[2024-03-01 11:59] LABS: Appearance Urine Clear; Color Urine Yellow; Glucose Urine UA Negative (Negative); Leukocyte Esterase Urine Negative (Negative); Nitrite Urine Negative (Negative); Urine Blood Negative (Negative); Urine Ketones Negative (Negative); Urine Protein Negative (Neg-Trace)
[2024-03-01 12:06] LABS: Bacteria Urine None Seen (None Seen); Hyaline Casts Urine 0-2 /LPF (0-2); RBC Urine 0-2 /HPF (0-2); Squamous Epithelial Cell Urine 0-2 /HPF (0-2); WBC Urine 0-5 /HPF (0-5)
[2024-03-01 12:13] LABS: Creatinine Urine 60.31 mg/dL; Microalbum/Creatinine Ratio Ur 39.7 ug/mg cr (<30)
[2024-03-01 12:27] LABS: Estimated Average Glucose 212 mg/dL; Hemoglobin A1C 230.2457 umol/L; Prostate Specific Antigen Scr 0.62 ng/mL (<0.05-4.0); Total Hemoglobin (HGBA1C) 3064.5323 umol/L; Vitamin B12 448 pg/mL (200-900)
[2024-03-01 12:48] LABS: Alanine Aminotransferase 55 U/L (0-40); Albumin Level 4.2 g/dL (3.5-5.0); Alkaline Phosphatase 316 U/L (39-117); Anion Gap 17 (12-20); Aspartate Amino Transferase 90 U/L (5-37); Bilirubin Direct 0.5 mg/dL (0.0-0.5); Blood Urea Nitrogen 4 mg/dL (9-16); Calcium 9.3 mg/dL (8.4-10.2); Carbon Dioxide 25 mmol/L (22-29); Chloride 94 mmol/L (96-108); Cholesterol 144 mg/dL (<200); Estimated Glomerular Filt Rate > 60; Glucose Random 201 mg/dL (60-115); HDL Cholesterol 92 mg/dL (>40); LDL Cholesterol Calculated 42 mg/dL (<100); Potassium 3.9 mmol/L (3.3-5.1); Sodium 132 mmol/L (135-145); Total Protein 8.1 g/dL (6.5-8.0); Triglycerides 50 mg/dL (<150)
[2024-03-01 13:16] LABS: Free T4 (Free Thyroxine) 1.16 ng/dL (0.71-1.85); Vitamin D 25-OH Total 21.7 ng/mL (>30)
[2024-03-01 13:52] LABS: CT PCR NOT DETECTED (Not Detect.); NG PCR NOT DETECTED (Not Detect.)
[2024-03-01 15:38] LABS: Gamma Glutamyl Transpeptidase 1514 U/L (11-51)
[2024-03-04 13:19] LABS: Alpha Fetoprotein 6.7 ng/mL (<6.1)
== END 2024-03-01 10:28 | disposition home or self-care (01) ==
LOC: HO.HHCL 10:27
PROVIDERS: Visit Provider Family Medicine
DX: Z00.00 Encounter for general adult medical examination without abnormal findings (principal); K76.0 Fatty (change of) liver, not elsewhere classified; R32 Unspecified urinary incontinence; F10.29 Alcohol dependence with unspecified alcohol-induced disorder; E11.69 Type 2 diabetes mellitus with other specified complication; Z12.5 Encounter for screening for malignant neoplasm of prostate
CPT/HCPCS: 80048; 80061; 80076; 81001; 82043; 82105; 82306; 82570; 82607; 82977; 83036; 84153; 84439; 84443; 85027; 87086; 87491; 87591